=== PATIENT | female | born 1985 | race African-American/Black ===

== ENCOUNTER 2022-06-01 21:26 | Emergency (ER) | payer MEDICAID ==
[~2022-06-01] VITALS: Ht 170.2 cm; Wt 59.0 kg
[2022-06-01] MEDS ORDERED: MORPHINE SULFATE 4 MG/ML CPJ (NOT FOR IM USE) IV STA (23:40)
[2022-06-01] MEDS ORDERED: SODIUM CHLORIDE 0.9% 1,000 ML IV ONE (23:45)
[2022-06-02 00:16] LABS: BASOPHILS % 0.8 % (0.0-2.0); EOSINOPHILS % 0.8 % (0.0-5.0); HEMATOCRIT. 30.4 % (36.0-48.0); HEMOGLOBIN. 9.5 g/dL (12.0-16.0); LYMPHOCYTES % 23.4 % (20.0-50.0); MEAN CORPUSCULAR HEMOGLOBIN 21.6 pg (28.0-32.0); MEAN CORPUSCULAR VOLUME 69.5 fL (81.0-99.0); MEAN PLATELET VOLUME 7.2 fl (7.4-10.4); MONOCYTES % 9.5 % (2.0-8.0); NEUTROPHILS % 65.5 % (40.0-76.0); PLATELET 481 x1000/uL (130-400); RED BLOOD CELL COUNT 4.38 mill/uL (4.2-5.4); RED CELL DISTRIBUTION WIDTH 16.6 % (11.6-14.6)
[2022-06-02 00:19] LABS: CHLORIDE 103 mEq/L (98-107)
[2022-06-02 00:23] LABS: PLATELET ESTIMATE NORMAL
[2022-06-02 00:33] LABS: HCG SCREEN NEGATIVE
[2022-06-02 03:12] VITALS: BP 112/78
== END 2022-06-02 03:12 | disposition home or self-care (01) ==
LOC: ER 21:26
DX: M25.511 Pain in right shoulder (principal); M25.551 Pain in right hip; R07.89 Other chest pain; W01.0XXA Fall on same level from slipping, tripping and stumbling without subsequent striking against object, initial encounter; Y93.89 Activity, other specified; Y92.9 Unspecified place or not applicable; Z88.0 Allergy status to penicillin
CPT/HCPCS: 36415; 71100; 73030; 73522; 80053; 84484; 84703; 85025; 93005; 96361; 96374; 99285; J2270; J7030